=== PATIENT | male | born 1945 | race American Indian/Alaskan Native ===

== ENCOUNTER 2017-01-04 13:42 | Emergency (ER) | payer MEDICARE, OTHER ==
[2017-01-04 14:47] VITALS: BP 151/94; PULSE 88; RESP 20; TEMP 98.1; O2SAT 99
[2017-01-04] MEDS ORDERED: cefTRIAXone (Rocephin) 250 mg Inj IM STA (15:03)
[2017-01-04 15:42] LABS: RBC URINE 2066 /hpf (0-3); URINE BACTERIA OCC (<OCC); URINE BILIRUBIN NEGATIVE (NEGATIVE); URINE BLOOD 3+ (NEGATIVE); URINE COLOR Amber (YELLOW); URINE GLUCOSE (UA) NORMAL (Normal); URINE KETONE TRACE mg/dL (NEGATIVE); URINE LEUKOCYTE ESTERASE 2+ Leu/uL (Negative); URINE PROTEIN 2+ mg/dL (NEGATIVE); WBC URINE 119 /hpf (0-5)
--- NOTE | 2017-01-04 15:52 | C.PDOC ---
History Of Present Illness 71 y/o male pmhx HIV, last CD4 408 with viral load 30 in 2016; presents with dysuria x2 days, 3 days ago. Symptoms have currently resolved. Denies discharge , fever, back pain, abdominal pain, vomiting or any other complaints. Pt is sexually active with 1 partner, does not think he has an STD but wants to be checked and treated for STD. Time Seen by Provider: 01/04/17 14:50 Chief Complaint (Nursing): Male Genitourinary History Per: Patient History/Exam Limitations: no limitations Onset/Duration Of Symptoms: Days Current Symptoms Are (Timing): Still Present Severity: Mild Quality Of Discomfort: denies: "Pain" Associated Symptoms: denies: Fever, Chills, Vomiting, Back Pain Recent travel outside of the [place]: No Past Medical History Reviewed: Historical Data, Nursing Documentation, Vital Signs Vital Signs: Last Vital Signs Temp 98.1 F 01/04/17 14:46 Pulse 88 01/04/17 14:46 Resp 20 01/04/17 14:46 BP 151/94 H 01/04/17 14:46 Pulse Ox 99 01/04/17 15:58 Family History: States: Unknown Family Hx - Social History Hx Alcohol Use: No Hx Substance Use: No Review Of Systems Constitutional: Negative for: Fever, Chills Gastrointestinal: Negative for: Vomiting, Abdominal Pain, Diarrhea Genitourinary: Positive for: Dysuria (resolved) Musculoskeletal: Negative for: Back Pain Physical Exam - Physical Exam Additional Physical Exam Comments: Constitutional: No acute distress. Head: Normocephalic. Atraumatic. Neck: Supple. Cardiovascular: Regular rate. Radial pulse 2+ bilaterally. Chest: No tenderness. Respiratory: Clear to auscultation bilaterally. GI: Soft. Nontender. Nondistended. Back: No CVA tenderness. Musculoskeletal: No tenderness or swelling of extremities. Skin: No rash. Neurologic: Alert, no focal deficit. ED Course And Treatment O2 Sat by Pulse Oximetry: 99 (room air) Pulse Ox Interpretation: Normal Medical Decision Making Medical Decision Making: Plan: chlamydia/GC, UA, rocephin, zithromax F/u PMD, return to ER for worsening pain, back pain, fever, vomiting. Disposition - Disposition Disposition: HOME/ ROUTINE Disposition Time: 15:47 Condition: STABLE Instructions: Dysuria (ED) - Clinical Impression Clinical Impression: Dysuria - Scribe Statement The provider has reviewed the documentation as recorded by the Debbieibjami Mayer Provider Attestation: All medical record entries made by the Wilma were at my direction and personally dictated by me. I have reviewed the chart and agree that the record accurately reflects my personal performance of the history, physical exam, medical decision making, and the department course for this patient. I have also personally directed, reviewed, and agree with the discharge instructions and disposition.
[2017-01-04] MEDS ORDERED: cefTRIAXone 250 MG in Lidocaine Hydrochloride 1 ML IM ONE (16:00)
== END 2017-01-04 16:02 | disposition home or self-care (01) ==
LOC: C.ER 13:42
DX: R30.0 Dysuria (principal); B20 Human immunodeficiency virus [HIV] disease